=== PATIENT | male | born 1950 | race Hispanic/Latino ===

== ENCOUNTER → 2019-02-09 | Outpatient (CLI) | payer OTHER ==
--- NOTE | 2019-02-09 14:48 | Diagnostic Imaging Report ---
Exam: [id number] - 2 views Indication: Renal calculi Comparison: None Findings: 2.6 cm conglomerate renal calculus overlying the left renal midpole. No radiographically apparent right renal calculi. Phleboliths in the pelvis. Nonobstructive bowel gas pattern. Osseous structures appear unremarkable. Impression: 2.6 cm left renal mid pole renal calculus. Signed by: Diana Damon MD on 02/09/2019 2:44 PM
== END ==
LOC: RAD 13:48
PROVIDERS: ATTEND Urology
DX: N20.0 Calculus of kidney (principal)
CPT/HCPCS: 74018